=== PATIENT | female | born 2000 | race Caucasian/White ===

== ENCOUNTER 2019-08-02 00:54 | Observation (INO) ==
[2019-08-02 02:09] LABS: Albumin Level 4.2 gm/dl (3.4-5.0); BUN Creatinine Ratio 22.8 (10-20); Calcium 8.8 mg/dl (8.5-10.1); Creatinine Clr Calc Pharmacy 116.6 ml/min; Est GFR (African American) 127.9; Est GFR (Non-African American) 110.4; Potassium 3.2 mmol/L (3.5-5.1)
[2019-08-02 02:12] LABS: Albumin Globulin Ratio 1.1 (0.9-2); Bilirubin,Total 0.3 mg/dl (0.2-1); Total Protein 8.2 gm/dl (6.4-8.2)
--- NOTE | 2019-08-02 03:01 | History & Physical Report ---
Date of Service August 02, 2019 Assessment & Plan (1) Alcohol overdose: Alcohol overdose/unresponsive state- Alcohol level was 457.3. We will place on supportive therapy with IV fluids, NSS + KCl 20 mEq at high 50 mils per hour. Monitor on telemetry for any possible arrhythmias, seizures, etc. Oxygenation is acceptable at 93% on room air. Famotidine 20 mg IV every 12 hours. Zofran 4 mg IV every 6 hours as needed Medical history has been unobtainable to this point, and as more information arrived regarding patient, additional investigations and/or treatments will be undertaken as warranted. Present on Admission?: Yes (2) Unresponsive: See above Present on Admission?: Yes (3) Hypokalemia: Placed on NSS + KCl 20 mEq at 150 mL's per hour. Repeat laboratories in a.m. on 08/03 Present on Admission?: Yes History of Present Illness Chief Complaint: The patient is brought to the emergency department by EMS, after reportedly walking out of a local bar, and collapsing outside the bar. Primary Care Provider: NO PCP The patient is a 19-year-old female with unobtainable past medical history due to severe alcohol intoxication/overdose, who was brought to the emergency department by EMS after being found collapsed outside of a local bar this evening. Work-up in the emergency department included laboratory testing, with alcohol level 457.3, with normal range 0-3. Laboratories were also significant for hypokalemia, with potassium of 3.2. The patient remained unresponsive during her stay in the emergency department, and was referred for evaluation for admission. Allergies Allergy/AdvReac Type Severity Reaction Status Date / Time Unable to Assess Allergy Unverified 04/27/19 21:15 Home Medications Home Medications Medication Instructions Recorded Confirmed Type Unobtainable 08/02/19 08/02/19 History Past Med/Surg History Family History (Updated 08/02/19 @ 01:22 by Christian Olsen) Other No significant family history Social History Preferred Language: Bengali Feels Safe at Home: Yes Smoking Status: Unknown if ever smoked Review of Systems Review of Systems: Unobtainable due to reduced consciousness Physical Exam Physical Exam: The patient is unresponsive, well developed and well nourished, normocephalic and atraumatic, lying in bed and in no acute distress. HEENT--PERRL, EOMI, mucous membranes and oropharynx dry. Neck--supple. No JVD. No bruits. Thyroid normal, trachea midline, no adenopathy. Heart--normal S1 and S2. No murmurs, rubs or gallops. Lungs--clear bilaterally, no respiratory distress, no accessory muscle use. Abdomen--normal bowel sounds and soft. Nontender. Nondistended. Extremities--no cyanosis or clubbing. No edema. There are good distal pulses b/l. Dermatologic--normal skin turgor, normal color, no abnormal lymph nodes, no rash. Neurologic--cranial nerves II through XII grossly intact. Rheumatologic--normal range of motion. Psychiatric--unresponsive Results & Data Vital Signs (Past 12 Hours) Vital Signs Temp Pulse Resp BP Pulse Ox 08/02/19 02:06 95 H 22 117/63 95 08/02/19 01:00 98.4 F 89 18 108/62 97 Laboratory Results Laboratory Results Sodium 137 mmol/L (136-145) 08/02/19 01:18 Potassium 3.2 mmol/L (3.5-5.1) L 08/02/19 01:18 Chloride 108 mmol/L (98-107) H 08/02/19 01:18 Carbon Dioxide 21 mmol/L (21-32) 08/02/19 01:18 Anion Gap 8.0 (3-11) 08/02/19 01:18 BUN 18 mg/dl (7-18) 08/02/19 01:18 Creatinine 0.77 mg/dl (0.6-1.2) 08/02/19 01:18 Est Cr Clr Drug Dosing 116.6 ml/min 08/02/19 01:18 Est GFR ( Amer) 127.9 08/02/19 01:18 Est GFR (Non-Af Amer) 110.4 08/02/19 01:18 BUN/Creatinine Ratio 22.8 (10-20) H 08/02/19 01:18 Glucose 109 mg/dl (70-99) H 08/02/19 01:18 Calcium 8.8 mg/dl (8.5-10.1) 08/02/19 01:18 Total Bilirubin 0.3 mg/dl (0.2-1) 08/02/19 01:18 AST 19 U/L (15-37) 08/02/19 01:18 ALT 30 U/L (12-78) 08/02/19 01:18 Alkaline Phosphatase 67 U/L (45-117) 08/02/19 01:18 Total Protein 8.2 gm/dl (6.4-8.2) 08/02/19 01:18 Albumin 4.2 gm/dl (3.4-5.0) 08/02/19 01:18 Globulin 4.0 gm/dl (2.5-4.0) 08/02/19 01:18 Albumin/Globulin Ratio 1.1 (0.9-2) 08/02/19 01:18 Ethyl Alcohol mg/dL 457.3 mg/dl (0-3) H 08/02/19 01:18 None Code Status & VTE Plan Code Status Full code VTE Prophylaxis Plan VTE Prophylaxis will be ordered: Yes PG Care Time/CCT Total # of Minutes Spent Total Time Spent with Patient: Total time spent is greater than 50% in coordination of care (as documented) at patient's floor/unit and/or counseling patient: Coding Level of Care Code 65580 Initial Inpt Care Lvl 2 Diagnoses Alcohol overdose T51.94XA Encounter type: initial encounter Injury intent: undetermined intent Unresponsive R41.89 Hypokalemia E87.6 (1) Alcohol overdose Encounter type: initial encounter Injury intent: undetermined intent Qualified Code(s): T51.94XA - Toxic effect of unspecified alcohol, undetermined, initial encounter
[2019-08-02] MEDS ORDERED: ONDANSETRON INJ 2 MG/ML 2 ML VIAL IV PRN (04:22)
[2019-08-02] MEDS ORDERED: FAMOTIDINE 20 MG in SYRINGE 3 ML IV SCH (04:22)
[2019-08-02] MEDS: NSS + 20MEQ KCL 20 MEQ/1,000 ML BAG IV SCH ×2 (04:46→11:18)
--- NOTE | 2019-08-02 07:14 | Emergency Department Note ---
Entered by Christian Olsen acting as a scribe for History of Present Illness General Chief complaint: Alcohol Intoxication Stated complaint: ETOH Time Seen by Provider: 08/02/19 01:02 Source: EMS Limitations: intoxication (alcohol intoxication) History of Present Illness Onset (ago): day(s) (last night) Location: head Pain Consistency: + constant Quality: + other (alcohol intoxication) Associated symptoms: + other (Positive for being unresponsive.) The patient is a 19 year old female who presents to the emergency department with complaints of constant alcohol intoxication beginning last night. Per EMS, the patient was found alone at [facility] last night. He states that the patient was drunk, walked outside of [facility], and fell down. He notes that the patient was unresponsive. HPI limited secondary to alcohol intoxication. Home Medications Home Medications Medication Instructions Recorded Confirmed Type Unobtainable 08/02/19 08/02/19 History Allergies Allergy/AdvReac Type Severity Reaction Status Date / Time Unable to Assess Allergy Unverified 04/27/19 21:15 Past Med/Surg History Family History (Updated 08/02/19 @ 01:22 by Christian Olsen) Other No significant family history Social History Preferred Language: Nicaraguan Current Living Situation Comment: unknown Feels Safe at Home: Yes Smoking Status: Unknown if ever smoked Review of Systems ROS limited secondary to alcohol intoxication. Physical Exam Vital Signs Vital Signs - 24 hr 08/02/19 01:00 08/02/19 02:06 08/02/19 02:51 Temperature 36.9 C Temperature Source Oral Pulse Rate 89 95 H 70 Pulse Rate from SpO2 Sensor 94 H 69 Pulse Rhythm Regular Pulse Strength Normal Respiratory Rate 18 22 14 Respiratory Effort / Characteristics Non-Labored Spontaneous Respiratory Depth Normal Respiratory Pattern Regular Blood Pressure 108/62 117/63 90/38 L Blood Pressure Mean 77 91 74 Blood Pressure Position Lying Pulse Oximetry 97 95 97 Oxygen Delivery Method Room Air Room Air Room Air Sepsis Recent Fever Within 48 Hours No Sepsis New/Unexplained Change in Mental Status No Sepsis Action Taken by Nursing No Action Required General: Completely unresponsive to verbal and painful stimuli, smells of alcohol. HEENT: Head - normocephalic and atraumatic Pupils are 8mm and nonreactive. Extraocular eye muscles are intact, and sclera are anicteric. Nose - moist nasal mucosa without discharge. Mouth - moist buccal mucosa. Oropharynx is nonerythematous and there is no tonsillar exudate or edema noted. Neck: Supple; no nuchal rigidity or cervical lymphadenopathy Heart: Regular rhythm and tachycardic. There is a normal S1 and S2 with no murmurs, clicks, or gallops appreciated. Lungs: Clear to auscultation bilaterally with no wheezes, rales, or rhonchi. Abdomen: Soft, completely nontender, nondistended, with good bowel sounds. There are no palpable pulsatile masses or hepatosplenomegaly. There is no guarding, rigidity, or rebound noted. Extremities: No evidence of cyanosis, clubbing, or edema. There are easily palpa ble peripheral pulses. Skin: warm and dry with good turgor and no rashes. Course Course 0055: The patient was evaluated in room B4. A complete history and physical exam was performed. The patient was placed in the prone position to avoid aspiration. They were observed on the library monitor and pulse oximeter. Labs were drawn as above. A order was placed for continuous cardiac monitoring. The patient was in a normal sinus rhythm. 0247: Upon reevaluation, the patient is hemodynamically stable. She remains unresponsive. I spoke with Dr. Ayon of the [facility]. The patient will be evaluated for further management. Consultations Consultation #1: I reviewed the patient's case with Dr. Ayon - Yordan dennistalist, [facility]. He will evaluate the patient for further management. Time: 02:47 Administered Medications Potassium Chloride/Sodium Chloride (Normal Saline W/20 Meq Kcl) 20 meq in 1,000 mls @ 150 mls/hr IV .[id number] JAMES Stop: 09/01/19 04:21 Last Admin: 08/02/19 04:46 Dose: 150 mls/hr Documented by: [id number] Famotidine 20 mg/ Syringe 5 mls @ 2.5 mls/min IV Q12 JAMES Stop: 09/01/19 04:21 Last Admin: 08/02/19 04:46 Dose: 2.5 mls/min Documented by: [id number] Medical Decision Making Differential Diagnosis Differential diagnoses include: alcohol overdose, drug intoxication, hypoglycemia, and head injury. Medical Records Attestation: I reviewed the patient's medical records. Home Medications Current Medication List: was personally reviewed by me Laboratory Data Attestation: I reviewed the patient's lab results. Result diagrams: 08/02/19 01:18 Lab Results 08/02/19 08/02/19 Range/Units 01:18 01:18 Sodium 137 (136-145) mmol/L Potassium 3.2 L (3.5-5.1) mmol/L Chloride 108 H (98-107) mmol/L Carbon Dioxide 21 (21-32) mmol/L Anion Gap 8.0 (3-11) BUN 18 (7-18) mg/dl Creatinine 0.77 (0.6-1.2) mg/dl Est Cr Clr Drug Dosing 116.6 ml/min Est GFR ( Amer) 127.9 Est GFR (Non-Af Amer) 110.4 BUN/Creatinine Ratio 22.8 H (10-20) Glucose 109 H (70-99) mg/dl Calcium 8.8 (8.5-10.1) mg/dl Total Bilirubin 0.3 (0.2-1) mg/dl AST 19 (15-37) U/L ALT 30 (12-78) U/L Alkaline Phosphatase 67 (45-117) U/L Total Protein 8.2 (6.4-8.2) gm/dl Albumin 4.2 (3.4-5.0) gm/dl Globulin 4.0 (2.5-4.0) gm/dl Albumin/Globulin Ratio 1.1 (0.9-2) Ethyl Alcohol mg/dL 457.3 H (0-3) mg/dl Blood Pressure Blood Pressure Findings: Low blood pressure Blood Pressure Disposition: further management by hospitalist MDM Narrative The patient is a 19 year old female who presents to the emergency department with complaints of constant alcohol intoxication beginning last night. The patient was brought to the emergency department after consuming too much a lcohol. There were no obvious signs of trauma or complaints of pain. They were observed closely throughout the night and remained stable while here in the ER. The patient had a very high blood alcohol level. I discussed the case with the [facility] Hospitalist and they will evaluate for further management. Impression & Plan Alcohol overdose, Unresponsive Discharge Plan Visit Data *Final* Discharge Date/Time: 08/02/19 04:09 Chief Complaint: Alcohol Intoxication Stated Complaint: ETOH ED Provider: Jennifer Abraham Discharge Problem: Alcohol overdose, Unresponsive Patient Disposition: Admitted As Inpatient Discharge Instructions Interventions: ED Discharge Assessment Last Done: 08/02/19 04:09 Discharge Problem: Alcohol overdose Qualifiers: Encounter type: initial encounter Injury intent: undetermined intent Qualified Code(s): T51.94XA - Toxic effect of unspecified alcohol, undetermined, initial encounter The scribe's documentation has been prepared under my direction and personally reviewed by me in its entirety. I confirm that the note above accurately reflects all work, treatment, procedures, and medical decision making performed by me.
[2019-08-02 09:37] LABS: BUN Creatinine Ratio 18.6 (10-20); Creatinine Clr Calc Pharmacy 130.1 ml/min; Est GFR (African American) 144.2; Est GFR (Non-African American) 124.4
--- NOTE | 2019-08-02 14:14 | Discharge Summary ---
Date of Service August 02, 2019 Admission HPI Per Admitting Provider The patient is a 19-year-old female with unobtainable past medical history due to severe alcohol intoxication/overdose, who was brought to the emergency department by EMS after being found collapsed outside of a local bar this evening. Work-up in the emergency department included laboratory testing, with alcohol level 457.3, with normal range 0-3. Laboratories were also significant for hypokalemia, with potassium of 3.2. The patient remained unresponsive during her stay in the emergency department, and was referred for evaluation for admission. Principal Diagnosis alcohol overdose Discharge Exam Constitutional WD/WN, vitals as above Respiratory normal respiratory effort, lungs clear to auscultation Cardiovascular RRR, no murmur, no edema Gastrointestinal (Abdomen) normal bowel sounds, soft, nontender, no hepatosplenomegaly Musculoskeletal no cyanosis or clubbing, extremities motor strength 5/5 Skin no rashes, warm and dry Neurologic moves all extremities and awake Psychiatric A+Ox3, euthymic affect Discharge Data Allergies Allergy/AdvReac Type Severity Reaction Status Date / Time Unable to Assess Allergy Unverified 04/27/19 21:15 Consultations 08/02/19 02:48 ED Decision to Admit Stat 08/02/19 04:22 Consult Case Management - Discharge Planning Routine Hospital Course (1) Alcohol overdose: Alcohol overdose/unresponsive state- Alcohol level was 457.3. Given supportive therapy with IV fluids, NSS + KCl 20 mEq No events on monitor Antiemetic provided This morning patient was extremely agitated and crying, very upset about her discharge, slightly slurred speech. Upon revisiting this afternoon she is awake, alert, calm and able to have appropriate conversation. Her roommate is bedside and is planning to take the patient home and agrees to stay with her for the rest of the day. I did recommend that patient follow up with her primary care provider when she goes home for a visit next week and discuss this admission to which she agreed. I discussed that two presentations to the ED within the last few months for unconsciousness due to alcohol is not normal and indicative of alcohol abuse. She was not receptive to this discussion. I recommend it be revisited with per pcp. (2) Unresponsive: resolved (3) Hypokalemia: Placed on NSS + KCl 20 mEq at 150 mL's per hour. Repeat laboratories with normal potassium and electrolytes Total Time Total Time Spent Total Time Spent (In Minutes): greater than 30 minutes Discharge Plan Discharge Items Patient Disposition: Home - Self-Care Reason For Visit: ALCOHOL OVERDOSE Discharge Diagnosis: Alcohol overdose Activity: Resume your previous activity Driving/Machine Use: Resume 1 day after discharge Non-emergency contact: Primary Care Provider Call non-emergency contact if: you have any medication questions Follow-up/Referrals: PCP,NO [Primary Care Provider] - Diet: Regular Addtl Attending Provider Instructions: Your blood alcohol upon arrival to the emergency department was 0.457. Please see your primary care provider in one week to discuss this admission and follow up care. I urge you to seek help for alcohol abuse. Do not drive today. Pending Studies at Discharge: No Stand-Alone Forms: My [employer], Smoking Cessation Medications and DC Order Prescriptions: No Action Unobtainable RF: 0 Discharge Orders: Discharge Order (Routine); Ordered 08/02/19 Ordered By: Marcela Carvajal/Other Patient Handouts: Addiction Alcohol, Addiction Social Use Signs, ED Overdose Alcohol Admission Data Admit Date/Time: 08/02/19 03:00 Attending Provider: Ronnie Avery Admit Provider: Everett Ayon Primary Care Provider: PCP,NO Other Providers: Ronnie Avery Coding Level of Care Code D/C Day Management >30 mins Diagnoses Alcohol overdose T51.94XA Encounter type: initial encounter Injury intent: undetermined intent Unresponsive R41.89 Hypokalemia E87.6
== END 2019-08-02 14:43 | disposition home or self-care (01) | DRG 897 ==
LOC: ED 00:54 → 2S 03:00 → SUATTDRO 03:00 → INTOOBSV 03:00 → 2S 04:09